=== PATIENT | female | born 1960 | race African-American/Black ===

== ENCOUNTER 2016-10-06 06:59 | Emergency (ER) | payer OTHER ==
[~2016-10-06] VITALS: Ht 162.6 cm; Wt 81.7 kg
[~2016-10-06 06:59] MED LIST: ATIVAN0.5 MG PO
[2016-10-06 07:51] LABS: BASOPHILS 1.4 % (0.0-2.0); EOSINOPHILS 4.2 % (0.0-3.0); HEMATOCRIT 40.1 % (37.0-47.0); HEMOGLOBIN 13.4 gm/dL (12.0-15.0); LYMPHOCYTES 39.9 % (24.0-44.0); MCHC 33.5 g/dL (28.0-37.0); MCV 86.7 fL (80.0-100.0); MONOCYTES 9.4 % (1.0-8.0); PLATELET COUNT 476 thou/uL (150-400); POLYS 45.1 % (36.0-66.0); RBC 4.63 mil/uL (4.20-5.00); RDW 13.9 % (10.5-14.5); WBC 6.7 thou/uL (4.0-11.0)
[2016-10-06 07:52] LABS: MANUAL DIFF NO
[2016-10-06 08:01] LABS: CALCIUM 9.1 mg/dL (8.5-10.1); CREATININE 0.9 mg/dL (0.6-1.0)
[2016-10-06] MEDS ORDERED: IBUPROFEN 800800 M1 PO (08:52)
[2016-10-06 09:01] VITALS: BP 132/77
== END 2016-10-06 09:01 | disposition home or self-care (01) ==
LOC: ER 06:59
PROVIDERS: Emergency Medicine
DX: S46.812A Strain of other muscles, fascia and tendons at shoulder and upper arm level, left arm, initial encounter (principal); F41.9 Anxiety disorder, unspecified; X58.XXXA Exposure to other specified factors, initial encounter; Y93.89 Activity, other specified; Y92.89 Other specified places as the place of occurrence of the external cause; Y99.8 Other external cause status

== ENCOUNTER 2018-09-01 11:30 | Emergency (ER) | payer OTHER ==
[~2018-09-01] VITALS: Ht 162.6 cm; Wt 80.3 kg
[~2018-09-01 11:30] MED LIST changes: +IBUPROFEN 800800 M1 PO
[2018-09-01 11:33] VITALS: BP 136/85
[2018-09-01] MEDS ORDERED: NAPROSYN500 MG PO (11:53)
[2018-09-01] MEDS ORDERED: TRAMADOL 50 MG50 MG PO (11:53)
[2018-09-01] MEDS ORDERED: NORFLEX100 MG PO (11:53)
== END 2018-09-01 12:36 | disposition home or self-care (01) ==
LOC: ER 11:30
DX: S39.012A Strain of muscle, fascia and tendon of lower back, initial encounter (principal); F41.9 Anxiety disorder, unspecified; X50.0XXA Overexertion from strenuous movement or load, initial encounter; Y92.89 Other specified places as the place of occurrence of the external cause; Y93.89 Activity, other specified; Y99.8 Other external cause status